=== PATIENT | female | born 1945 | race Caucasian/White ===

== ENCOUNTER 2019-04-19 15:35 | Inpatient (IN) | payer MEDICARE, BC ==
[~2019-04-19] VITALS: Ht 157.5 cm; Wt 80.0 kg
--- NOTE | 2019-04-19 15:47 | NUR ---
PT TO ROOM VIA [facility]
--- NOTE | 2019-04-19 16:18 | NUR ---
PT TO US AT THIS TIME IN STABLE CONDITION
[2019-04-19 16:22] LABS: HEMATOCRIT 34.5 % (37.0-47.0); HEMOGLOBIN 11.7 g/dl (12.0-16.0); IMMATURE GRANULOCYTES 0.9 % (0.0-5.0); MEAN CELL VOLUME 93.5 fL CALC (80.0-100.0); MEAN CORPUSCULAR HGB 31.7 pG CALC (26.0-32.0); MEAN CORPUSCULAR HGB CONC 33.9 g/L CALC (32.0-36.0); NEUT# 9.64 thou/uL (2.00-7.15); RED BLOOD COUNT 3.69 mill/uL (4.20-5.60); RED CELL DISTRI WIDTH 14.6 % (11.5-15.5)
--- NOTE | 2019-04-19 16:30 | NUR ---
PT RETURNED FROM US; MONITORING DEVICES IN PLACE; VSS; CALL LIGHT WITHIN REACH; WILL CONTINUE TO MONITOR
[2019-04-19 16:42] LABS: ALBUMIN 3.1 g/dL (3.2-5.0); BILIRUBIN, TOTAL 2.4 mg/dL (0.0-1.4); CREATININE 1.8 mg/dL (0.5-1.0); POTASSIUM 3.7 mmol/l (3.5-5.1); TOTAL PROTEIN 6.4 g/dL (6.3-8.2)
--- NOTE | 2019-04-19 17:30 | NUR ---
DR LAWSON AT BEDSIDE TO DISCUSS FINDINGS AND POC;
[2019-04-19 18:29] VITALS: BP 102/47
--- NOTE | 2019-04-19 18:30 | NUR ---
Admission Note Report Given to: MIGUE HERNÁNEDZ Transported by: Wheelchair X Stretcher Transported with: X Nurse Transporter X Patent IV O2 Real Estate Office Manager Location: ICU X MS2
--- NOTE | 2019-04-19 21:58 | NUR ---
PATIENT RESTING IN BED AT THIS TIME EATING MALL AMT OF DINNER TRAY PROVIDED. PATIENT WITH O2 VIA [employer] CANNULA IN PLACE. PATIENT IS AWAKE ALERT AND ORIENTEDX3. FAMILY AT BEDSIDE. PATIENT C/O SEVERE LEFT SHOULDER PAIN. DENIES ANY TYPE OF RECENT INJURY. MEDICATED WITH LORTAB 5/325MG PO OR 10/10 PAIN SCALE. X-RAY OF LEFT SHOULDER DONE AT BEDSIDE. IVF NS HUNG AND INFUSING VIALEFT AC SITE. SITE IS HEALTHY WITH GOOD BLOOD RETURN. PATIENTASSIST TO BSC TO VOID DARK BLANCA URINE. ASSISTED BACK TO BED. PATIENT ORIENTED TO ROOM AND SURROUNDINGS. INSTRUTED ON USE OF NURSE CALL LIGHT SYSTEM, TV REMOTE AND PHONE. SAFETY PRECAUTIONS REINFORCED. CALL LIGHT IN REACH. WILL CONT TO MONITOR.
--- NOTE | 2019-04-20 | NUR ---
PATIENT APPEARS SLEEPING AT THIS TIME POSTIONED ON HER RIGHT SIDE-EYES CLOSED AND RESPS ARE EVEN AND UNLABORED. O2 VIA [employer] CANNULA IN PLACE. IVF NS PATENT AND INFUSING VIA LEFT AC SITE AT 100CC/HR. SITE IS HEALTHY AT THIS TIME, CALL LIGHT IN REACH. WILL CONT TO MONITOR.
--- NOTE | 2019-04-20 02:15 | NUR ---
PATIENT RESTING IN BED-ASSISTED WITH BEDPAN TO VOID-TOO PAINFUL TO GET OOB PER PATIENT. PATIENT CRYING AND MOANING OF LEFT SHOULDER PAIN. MEDICATED WITHLORTAB 5/325MG PO FOR PAIN. OFFER HOT OR COLD PACK BUT PATIENT DECLINED AT THIS ITME. SAFETY PRECAUTIONS REINFORCED. CALL LIGHT IN REACH. WILL CONT TO MONITOR.
[2019-04-20 04:01] VITALS: BP 132/72
--- NOTE | 2019-04-20 04:13 | NUR ---
PATIENT STATES SOME RELIEF FROM EARLIER PAIN MED- TELE MONITOR IN PLACE. EKG WAS DONE. IVF PATENT AN INFUSING VIA LEFT AC SITE. SAFETY PREAUTIONS REINFORCED. CALL LIGHT IN REACH. WILL CONT TO MONITOR.
[2019-04-20 07:52] VITALS: BP 136/79
[2019-04-20 09:58] LABS: HEMOGLOBIN 11.5 g/dl (12.0-16.0); IMMATURE GRANULOCYTES 2.2 % (0.0-5.0); MEAN CELL VOLUME 94.3 fL CALC (80.0-100.0); MEAN CORPUSCULAR HGB CONC 32.9 g/L CALC (32.0-36.0); NEUT# 10.37 thou/uL (2.00-7.15); RED BLOOD COUNT 3.71 mill/uL (4.20-5.60); RED CELL DISTRI WIDTH 14.7 % (11.5-15.5)
--- NOTE | 2019-04-20 10:00 | NUR ---
PT ALERT AND ORIENTED X 3. LUNGS CLEAR, 2 LPM. PT PROVIDED PAIN MED THIS MORNING PER LEFT SHOULDER DISCOMFORT. RIGHT LEG APPEARS LESS SWOLLEN AND LESS RED THAN LAST NIGHT. SLING APPLIED TO LEFT ARM TO SUPPORT SHOULDER.
[2019-04-20 10:27] LABS: CREATININE 1.2 mg/dL (0.5-1.0); MAGNESIUM 2.1 mg/dL (1.6-2.3); POTASSIUM 3.8 mmol/l (3.5-5.1)
[2019-04-20 11:00] VITALS: BP 135/78
[2019-04-20 14:30] VITALS: BP 139/73
[2019-04-20] MEDS ORDERED: DICLOFENAC SODIUM1 % TOP (14:36)
[2019-04-20] MEDS ORDERED: MELOXICAM15 MG PO (14:37)
[2019-04-20 14:38] LABS: URINE BILIRUBIN - DIPSTICK NEGATIVE (NEGATIVE); URINE BLOOD DIPSTICK NEGATIVE (NEGATIVE); URINE COLOR DK. YELLOW; URINE GLUCOSE - DIPSTICK NEGATIVE (NEGATIVE); URINE KETONE NEGATIVE (NEGATIVE); URINE LEUK ESTERASE NEGATIVE (NEGATIVE); URINE NITRITE - DIPSTICK NEGATIVE (Negative); URINE PH 5.5 (4.5-8.0); URINE PROTEIN - DIPSTICK 30 mg/dL (NEG-TRACE); URINE UROBILINOGEN - DIPSTICK >=8.0 E.U./dL (0.2)
--- NOTE | 2019-04-20 14:38 | NUR ---
S: CADEN JACOBO is a 73 F who presents with Cellulitis (leg). All medications in patient's chart were reviewed. O: VS: BP:135/78 mmHg, P:84 bpm, RR:20 breath per minute,T:98.4 F W:80.002 kg, HT:62 in, Scr=1.2 mg/dL,CrCl=40.3 ml/min A: Blood culture is pending. P: Patient is on Ceftriaxone 1 gm IV Q24H. Vancomycin ordered for pharmacy to dose. Start Vancomycin 1,000 mg IV Q24H. Vancomycin trough is drawn 30 minutes before the 4th dose on 04/23/19 at 1630. Vancomycin goal trough is between 10-15 mcg/ml. Pharmacy will follow and or advise on antibiotics use as needed.
[2019-04-20 14:39] LABS: URINE SQUAMOUS EPITHELIAL CELL FEW EPI/hpf (0-FEW); URINE WBC 0-2 WBC/hpf (0-5)
--- NOTE | 2019-04-20 16:00 | NUR ---
PT MEDICATED ORDERED, SEEN TO HAVE REDUCTION IN PAIN LEVEL. PT SEEN RESTING IN THE BED, NO ACUTE DISTRESS.
[2019-04-20 18:40] VITALS: BP 151/74
--- NOTE | 2019-04-20 19:40 | NUR ---
PT RESTING IN BED, NO SIGNS OF DISTRESS NOTED, RESP EVEN AND UNLABORED. PT ALERT AND ORIENTED X3, DISCUSSED POC, REDNESS TO RLE NOTED PT STATES ITS NOT IT WAS BEFORE, EDEMA NOTED. ELEVATED BLE ON PILLOW. PT DENIES PAIN AT THIS TIME. ASSESSMENT COMPLETED, CALL LIGHT IN REACH,CONTINUE TO MONITOR.
[2019-04-20 23:27] VITALS: BP 124/56
--- NOTE | 2019-04-21 | NUR ---
PT RESTING IN BED WITH EYES CLOSED, NO SIGNS OF DISTRESS NOTED, RESP EVEN AND UNLABORED. CALL LIGHT IN REACH,CONTINUE TO MONITOR.
[2019-04-21 02:25] LABS: URINE BLOOD DIPSTICK NEGATIVE (NEGATIVE); URINE COLOR YELLOW; URINE GLUCOSE - DIPSTICK 100 mg/dL (NEGATIVE); URINE KETONE NEGATIVE (NEGATIVE); URINE LEUK ESTERASE NEGATIVE (NEGATIVE); URINE NITRITE - DIPSTICK NEGATIVE (Negative); URINE PH 5.5 (4.5-8.0); URINE PROTEIN - DIPSTICK 30 mg/dL (NEG-TRACE); URINE UROBILINOGEN - DIPSTICK >=8.0 E.U./dL (0.2)
[2019-04-21 02:26] LABS: URINE BILIRUBIN - DIPSTICK SMALL (NEGATIVE)
[2019-04-21 03:38] VITALS: BP 117/59
--- NOTE | 2019-04-21 03:39 | NUR ---
PT RESTING IN BED, VITALS OBTAINED, PT VOICES NO NEEDS OR COMPLAINTS AT THIS TIME, CALL LIGHT IN REACH,CONTINUE TO MONITOR.
[2019-04-21 07:27] VITALS: BP 147/70
--- NOTE | 2019-04-21 07:48 | NUR ---
REPORT RECEIVED FROM NINO GUIDRY. PT SITTING IN SEMI FOWLERS IN BED. REPORTS MILD LEFT SHOULDER PAIN, INCREASES TO SEVERE PAIN WITH MOVEMENT. FALL PRECAUTIONS REINFORCED. CALL LIGHT REVIEWED AND IN REACH. PLAN OF CARE DISCUSSED. PT INQUIRING ABOUT DISCHARGE. WORRIED ABOUT CAPABILITY OF TAKING CARE OF DISABLED IN THIS CONDITION. WILL RELAY THESE CONCERNS TO THE PHYSICIAN. PT ASSISTED TO BSC. UNABLE TO BEAR WEIGHT ON RIGHT FOOT AND UNABLE TO USE LEFT ARM. BM AT THIS TIME. ASSISTED BACK TO BED. NOW EATING BREAKFAST ON SIDE OF BED. BED ALARM SET FOR SAFETY.
--- NOTE | 2019-04-21 09:06 | NUR ---
PRELIMINARY BLOOD CULTURES POSITIVE FOR 2 SETS GRAM POSITIVE COCCI, CALLED TO PHYSICIAN. PT HAS COVERAGE WITH VANCOMYCIN AND ROCEPHIN.
[2019-04-21 11:09] LABS: HEMOGLOBIN 11.4 g/dl (12.0-16.0); IMMATURE GRANULOCYTES 3.9 % (0.0-5.0); MEAN CELL VOLUME 94.4 fL CALC (80.0-100.0); MEAN CORPUSCULAR HGB 31.7 pG CALC (26.0-32.0); MEAN CORPUSCULAR HGB CONC 33.5 g/L CALC (32.0-36.0); NEUT# 13.88 thou/uL (2.00-7.15); RED BLOOD COUNT 3.6 mill/uL (4.20-5.60); RED CELL DISTRI WIDTH 15.3 % (11.5-15.5)
[2019-04-21 11:42] VITALS: BP 152/74
--- NOTE | 2019-04-21 12:00 | NUR ---
DR. BROTHERS IN TO SEE PT. AT THIS TIME. PLAN OF CARE UPDATED AT THIS TIME.
--- NOTE | 2019-04-21 12:45 | NUR ---
PT LEFT FLOOR VIA STRETCHER AT THIS TIME, DESTINATION MRI, ACCOMPANIED BY DOLL SURGEON X 2.
--- NOTE | 2019-04-21 13:37 | NUR ---
PT RETURNED TO FLOOR VIA STRETCHER. REPORTS TOLERATION OF MRI TESTING. TRANSFERED BACK TO BED.
--- NOTE | 2019-04-21 14:05 | NUR ---
RIGHT ANKLE ASPIRATION PER DR. WORLEY. RADHA/ADOLPH ALCAZAR APPLIED. SPECIMEN SENT TO LAB [facility].
[2019-04-21 15:21] LABS: ANION GAP 12 (6-22 (CALC)); BUN 34 mg/dL (8-23); BUN/CREATININE RATIO 39 (12-20 (CALC)); CARBON DIOXIDE 26 mmol/l (22-30); CHLORIDE 105 mmol/l (95-108); CREATININE 0.9 mg/dL (0.5-1.0); GFR > 60 ML/MIN (>=60 (CALC)); GFR FOR AFR.AMER. > 60 ML/MIN (>=60 (CALC)); POTASSIUM 3.8 mmol/l (3.5-5.1); SODIUM 139 mmol/l (137-146)
--- NOTE | 2019-04-21 16:07 | NUR ---
KEEP PT. NPO AFTER MIDNIGHT PER DR. WORLEY.
[2019-04-21 16:22] VITALS: BP 162/79
[2019-04-21 19:45] VITALS: BP 151/78
--- NOTE | 2019-04-21 20:54 | NUR ---
PT MEDICATED AND ASSESSMENT COMPLETED AT THIS TIME. DRESSING TO RIGHT ANKLE IS CDI W/APPROPRIATE TIGHTNESS. STRONG PULSE PALPATED TO RIGHT FOOT AND ROM OF TOES GOOD. PT REPORTS ROM HAS IMPROVED. 2+ EDEMA TO RLE. ELEVATED W/PILLOWS AT THIS TIME. DISCUSSED USE OF IS W/PT, DID NOT WANT TO USE IT AT THIS ITME. PT MEDICATED FOR PAIN, WILL CALL RESP FOR ASSISTANCE SETTING UP CPAP.
[2019-04-21 23:50] VITALS: BP 161/86
[2019-04-22] VITALS (12 sets, daily range): BP systolic 139–186; BP diastolic 71–98
--- NOTE | 2019-04-22 00:15 | NUR ---
V/S OBTAINED, NO S/O DISTRESS NOTED.
--- NOTE | 2019-04-22 03:00 | NUR ---
PT CALLED TO REQUEST ASSISTANCE TO BEDPAN, SHE FELT SHE NEEDED TO HAVE BM, PT PASSED FLATUS ONLY, BUT WAS ABLE TO URINATE IN BEDPAN. 250CC OF DARK YELLOW URINE OUTPUT AT THIS TIME. PUREWICK BACK IN PLACE AND PT REPOSITIONED FOR COMFORT.
--- NOTE | 2019-04-22 03:33 | NUR ---
PT C/O PAIN IN LEFT SHOULDER 12/29. PT MEDICATED FOR PAIN AND PROVIDED WARM PACK TO AREA FOR COMFORT. PT ASSISTED REPOSITIONING IN BED FOR COMFORT. V/S ASSESSED, BP ELEVATED. WILL REEVALUATE BP ONCE PAIN IS UNDER CONTROL.
[2019-04-22 06:09] LABS: HEMATOCRIT 35.5 % (37.0-47.0); HEMOGLOBIN 11.6 g/dl (12.0-16.0); MEAN CELL VOLUME 94.4 fL CALC (80.0-100.0); MEAN CORPUSCULAR HGB 30.9 pG CALC (26.0-32.0); MEAN CORPUSCULAR HGB CONC 32.7 g/L CALC (32.0-36.0); RED BLOOD COUNT 3.76 mill/uL (4.20-5.60); RED CELL DISTRI WIDTH 15.6 % (11.5-15.5)
[2019-04-22 06:34] LABS: ANION GAP 12 (6-22 (CALC)); BUN 40 mg/dL (8-23); BUN/CREATININE RATIO 43 (12-20 (CALC)); CARBON DIOXIDE 27 mmol/l (22-30); CHLORIDE 105 mmol/l (95-108); CREATININE 0.9 mg/dL (0.5-1.0); GFR > 60 ML/MIN (>=60 (CALC)); GFR FOR AFR.AMER. > 60 ML/MIN (>=60 (CALC)); POTASSIUM 3.8 mmol/l (3.5-5.1); SODIUM 140 mmol/l (137-146)
--- NOTE | 2019-04-22 07:57 | NUR ---
PT RESTING IN BED, NO SIGNS OF DISTRESS NOTED, RESP EVEN AND UNLABORED. PT ALERT AND ORIENTED X3, EDEMA NOTED TO RLE, REMOVED DRESSING TO ANKLE. ASSESSMENT COMPLETED. PT CONTINUES TO C/O PAIN TO L SHOULDER. ICE PACK PROVIDED. CALL LIGHT IN REACH,CONTINUE TO MONITOR.
--- NOTE | 2019-04-22 09:40 | NUR ---
PT RESTING IN BED, DISCUSSED GOING TO THE OR FOR HER PROCEDURE PT VERBALIZED UNDERSTANDING. CONSENT OBTAINED.
--- NOTE | 2019-04-22 09:55 | NUR ---
OR ARRIVED TO BEDSIDE TO TAKE PT TO OR.
--- NOTE | 2019-04-22 10:07 | NUR ---
PT TAKEN DOWN TO OR VIA STRETCHER WITH NURSE TATUM AND STUDENT NURSE.
--- NOTE | 2019-04-22 12:08 | NUR ---
PT STILL IN OR AT THIS TIME
--- NOTE | 2019-04-22 13:53 | NUR ---
PT ARRIVED TO MS2 VIA STRETCHER ACCOMPANIED BY OR NURSE RC. PT DROWSY, ABLE TO STATE HER NAME AND . PT ATTACHED TO DYNAMAP FOR POST OP VITALS, IS AT BEDSIDE. DRESSING TO RLE CDI, ELEVATED ON PILLOW. CALL LIGHT IN REACH,CONTINUE TO MONITOR.
--- NOTE | 2019-04-22 15:57 | NUR ---
PT RESTING IN BED, DISCUSSED NEW MEDICATION NORVASC PT AGREES TO TAKE. NO SIGNS OF DISTRESS NOTED, RESP EVEN AND UNLABORED. CALL LIGHT IN REACH,CONTINUE TO MONITOR.
--- NOTE | 2019-04-22 19:45 | NUR ---
ASSESMENT COMPLETE. PLAN OF CARE REVIEWED. CALL JEREZ WITHIN REACH, AGREES TO CALL PRN.
--- NOTE | 2019-04-22 22:20 | NUR ---
PT STATES HER LEFT SHOULDER PAIN HASNT GOTTEN BETTER AND HER LLE PAIN IS GETTING WORSE. STATES "I WONT BE ABLE TO SLEEP", ADVISED PT I WOUL CALL MD FOR FURTHER ORDERS.
--- NOTE | 2019-04-22 23:00 | NUR ---
ORDERS RECEIVED FROM DR. MORENO, TELEPHONE ORDER READ BACK AND VERIFIED. SEE CHART.
[2019-04-23] VITALS (8 sets, daily range): BP systolic 143–180; BP diastolic 71–89
--- NOTE | 2019-04-23 00:22 | NUR ---
WENT IN TO MEDICATE PT AND PT WAS SLEEPING. APPEARS COMFORTABLE AND IN NO DISTRESS. SNORING, WEARING HOME CPAP. CALL JEREZ REMAINS WITHIN REACH. WILL MEDICATE PRN WHEN SHE WAKES UP. PELLED DOSE WASTED Flex/ MAC CAMARENA.
--- NOTE | 2019-04-23 03:37 | NUR ---
PT AWAKE, REPOSITIONED FOR COMFORT, MEDICATED WITH PERCOCET 2 TABS AND PREDNISONE (SEE MAR) PT DID NOT RECEIVE PREDNISONE YESTERDAY, WAS HELD B/C SHE WAS NPO FOR SX AND HAS HAD INCREASED L SHOULDER SINCE, PREDNISONE GIVEN EARLY PER PT PREFERENCE.
--- NOTE | 2019-04-23 04:51 | NUR ---
PT APPEARS TO BE SLEEPING COMFORTABLY, RESP REG/UNLABORED, NO APPARENT DISTRESS. CALL JEREZ REMAINS WITHIN REACH.
[2019-04-23 06:42] LABS: HEMATOCRIT 36.3 % (37.0-47.0); HEMOGLOBIN 11.5 g/dl (12.0-16.0); IMMATURE GRANULOCYTES 4.8 % (0.0-5.0); MEAN CELL VOLUME 97.8 fL CALC (80.0-100.0); MEAN CORPUSCULAR HGB CONC 31.7 g/L CALC (32.0-36.0); NEUT# 16.4 thou/uL (2.00-7.15); RED BLOOD COUNT 3.71 mill/uL (4.20-5.60)
[2019-04-23 06:59] LABS: ALBUMIN 2.6 g/dL (3.2-5.0); ALKALINE PHOSPHATASE 171 u/l (38-126); ANION GAP 11 (6-22 (CALC)); BILIRUBIN, TOTAL 1.7 mg/dL (0.0-1.4); BUN 25 mg/dL (8-23); BUN/CREATININE RATIO 34 (12-20 (CALC)); CARBON DIOXIDE 26 mmol/l (22-30); CHLORIDE 106 mmol/l (95-108); CREATININE 0.7 mg/dL (0.5-1.0); GFR > 60 ML/MIN (>=60 (CALC)); GFR FOR AFR.AMER. > 60 ML/MIN (>=60 (CALC)); POTASSIUM 4.4 mmol/l (3.5-5.1); SGOT/AST 66 u/l (9-36); SODIUM 139 mmol/l (137-146); TOTAL PROTEIN 5.8 g/dL (6.3-8.2)
--- NOTE | 2019-04-23 08:20 | NUR ---
Patient resting in the bed with eyes open watchinh TV. Head to toe assessment completed. Patient rated her pain "2 out of 10" A&0x3. Resp even and unlabored. Abd area soft and nontender. Last BM 04/21/19. Surgeon Hannah saw patient and stated he will being seeing patient on wednesday for delayed closure of wound. MD explained everything to patient and patient verbalized understanding.
--- NOTE | 2019-04-23 19:30 | NUR ---
CALLED DR. CASTRO TO VERIFY PT/OT CONSULT AND PROPHYLACTIC LOVENOX ORDERS. VERBAL ORDERS RECEIVED AND READ BACK.
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
--- NOTE | 2019-04-23 19:45 | NUR ---
ASSESMENT COMPLETE, PT RESTING IN BED. PLAN OF CARE REVIEWED. CALL JEREZ WITHIN REACH. AGREES TO CALL PRN.
--- NOTE | 2019-04-23 19:50 | NUR ---
ED CALLED TO REPORT PT CONVERTED TO AFIB FOR A MINUTE AND CONVERTED BACK TO NSR80'S. PT ASSESSED, REPORTS PAIN IN SHOULDER 5/10 THAT SHE HAS BEEN HAVING, DENIES CP/SOB/N. SKIN IS W/D TO TOUCH. BP ELEVATED @170/89,HR85 STEADY ON MONITOR. WILL NOTIFY PHYSICIAN OF RHYTHEM CHANGE.
--- NOTE | 2019-04-23 21:55 | NUR ---
SPOKE W/ DR. CASTRO RE: PT's ELEVATED B/P, NEW ONSET AFIB 130's (PER TELE). AFIB IS NON-SUSTAINED AND PT CONVERTS BACK TO NSR. PT ASYMPTOMATIC. DENIES HISTORY. EKG DONE, SHOWS NSR. 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 ORDER FOR METOPROLOL RECEIVED, VERIFIED AND READ BACK TO DR. CASTRO. SEE MAR.
[2019-04-24] VITALS (8 sets, daily range): BP systolic 143–180; BP diastolic 54–95
--- NOTE | 2019-04-24 00:10 | NUR ---
PT APPEARS TO BE SLEEPING, CPAP IS ON, NO APPARENT DISTRESS, RESP/REG AND UNLABORED. RLE REMAINS ELEVATED WITH DRESSING C/D/I. SENSATION, CIRCULATION, AND MOVEMENT CONTINUES TO BE INTACT TO RLE. B/P IMPROVED, PER BALDEMAR CAMARENA IN TELE NSR 70s AND PT IS NO LONGER "CONVERTING IN AND OUT OF AFIB)
--- NOTE | 2019-04-24 04:48 | NUR ---
PT CALLED AT 0400 ASKING FOR HER PAIN MEDICATION, UPON ENTERING ROOM PT IS CRYING AND COMPLAINING OF SEVERE L SHOULDER PAIN. PERCOCET GIVEN AT THAT TIME. ON F/U PT REPORTS NO CHANGE IN PAIN LEVEL, MEDICATED W/ DILAUDID (SEE MAR) AND REPOSITIONED. PT WAS MUCH CALMER AND COMFORTABLE IMMEDIATELY, WILL CON'T TO MONITOR. CALL JEREZ WITHIN REACH, AGREES TO CALL PRN.
--- NOTE | 2019-04-24 04:57 | NUR ---
RLE DRESSING REMAINS C/D/I, RLE ELEVATED, RLE: CIRCULATION, MOVEMENT, AND SENSATION INTACT/WNL. NO C/O PAIN FROM RLE.
--- NOTE | 2019-04-24 07:05 | NUR ---
REPORT RECEIVED FROM MIGUE GUTIÉRREZ;PT APPEARS TO BE SLEEPING IN SUPINE POSITION WITH HOME CPAP ON,RESPIRATIONS APPEAR EVEN AND UNLABORED;NO S/S OF DISTRESS NOTED;TELE MONITORING IN PLACE;ALL SAFETY PRECAUTIONS NOTED WITH BED IN THE LOWEST POSITION AND CALL LIGHT IN REACH;WILL CONTINUE TO MONITOR
--- NOTE | 2019-04-24 07:24 | NUR ---
Vancomycin Weight: 80 Kilograms Current dose being given: 1000 mg Current dosing interval: 24 hrs Current infusion time (hrs): 2 Trough level obtained: 2.5 mcg/ml Timing of trough - # of hrs before next dose: 0.5 Hrs New rate constant (kaur): 0.089 hr-1 Half-life: 7.79 Hours Vd from levels: 56.00 Liters (0.7 L/kg) CLvanco= 4.984 L/hr Vancomycin 1250 mg q 12 hrs starting at 1000 today Infuse over 2 hrs Expected Cpeak: 31 mcg/mL Expected Ctrough: 12 mcg/mL Next trough 04/25/19 at 2130
--- NOTE | 2019-04-24 09:00 | NUR ---
PT RESTING IN SEMI FOWLERS POSITION,A&O X3;VS OBTAINED AND ASSESSMENT COMPLETED;PT DENIES ANY CURRENT NEEDS,PAIN SCALE AND REPORTING EDUCATED;RESPIRATIONS SHALLOW ON RA,INSTRUCTED ON I.S USE AND VERBALIZES UNDERSTANDING;ABDOMEN SOFT ON PALPATION AND ACTIVE IN ALL 4 QUADRANTS;DRESSING TO RIGHT ANKLE CDI AND ELEVATED ON A PILLOW,CAP REFILL LESS THAN 3 SECONDS;TELE MONITORING IN PLACE;#20G TO LAC FLUSHED AND PATENT,SITE APPEARS HEALTHY;PT DENIES ANY ADDITIONAL NEEDS AT THIS TIME AND IS ENCOURAGED TO CALL FOR ASSISTANCE IF NEEDED;FALL PRECAUTIONS IN PLACE WITH BED IN THE LOWEST POSITION AND CALL LIGHT IN REACH;WILL CONTINUE TO MONITOR
--- NOTE | 2019-04-24 09:47 | NUR ---
AT BEDSIDE DISCUSSING POC WITH PT.
--- NOTE | 2019-04-24 10:10 | NUR ---
PT REPORTS LEFT SHOULDER PAIN RATING 10/10 ON THE PAIN SCALE AND REQUESTS PAIN MEDICATION,PT MEDICATED WITH PRN DILAUDID 1MG IVP PER EMAR;WILL CONTINUE TO MONITOR FOR EFFECTIVENESS
--- NOTE | 2019-04-24 11:14 | NUR ---
PT TRANSPORTED TO RADIOLOGY VIA STRETCHER IN STABLE CONDITION ACCOMPANIED BY USAMA ANDRADE
--- NOTE | 2019-04-24 11:55 | NUR ---
PT RETURNED BACK TO MED/SURF ROOM 262 IN STABLE CONDITION VIA STRETCHER ACCOMPANIED BY USAMA ANDRADE
--- NOTE | 2019-04-24 12:45 | NUR ---
PT RESTING IN SEMI FOWLERS POSITION REPORTING LEFT SHOULDER PAIN RATING 10/10 ON THE PAIN SCALE AND REQUESTING PAIN MEDICATION,PT TO BE MEDICATED WITH PRN DILAUDID 1MG IVP;RESPIRATIONS EVEN AND UNLABORED ON RA;TELE MONITORING IN PLACE;X2 ATTEMPTS MADE TO START NEW IV SITE DUE TO EXPIRATION DATE UNSUCESSFUL;PT ADMINISTERED MOM WITH PRUNE JUICE TO ASSIST IN BOWEL CARE;PT DENIES ANY ADDITIONAL NEEDS AT THIS TIME AND IS ENCOURAGED TO CALL FOR ASSISTANCE IF NEEDED;FALL PRECAUTIONS IN PLACE WITH CALL LIGHT IN REACH;WILL CONTINUE TO MONITOR
--- NOTE | 2019-04-24 15:25 | NUR ---
PT RESTING IN SEMI FOWLERS POSITION WITH NEURORADIOLOGIST AT BEDSIDE ASSISTING WITH BOWEL CARE;RESPIRATIONS EVEN AND UNLABORED ON RA;PT REPORTS PAIN TO LUE BUT DENIES THE NEED FOR PAIN MEDICATION STATING "I DONT WANNA TAKE ANYTHING" ICE PACK PROVIDED;RLE REMAINS ELEVATED ON A PILLOW;IV SITE TO LAC PATENT;TELE MONITORING IN PLACE;PT DENIES ANY ADDITIONAL NEEDS AT THIS TIME AND IS ENCOURAGED TO CALL FOR ASSISTANCE IF NEEDED;FALL PRECAUTIONS IN PLACE WITH CALL LIGHT IN REACH;WILL CONTINUE TO MONITOR
--- NOTE | 2019-04-24 17:10 | NUR ---
PT MEDICATED WITH PRN DILAUDID 1MG IVP FOR LEFT SHOULDER PAIN RATING 6/10 ON THE PAIN SCALE,WILL CONTINUE TO MONITOR FOR EFFECTIVENESS
--- NOTE | 2019-04-24 17:55 | NUR ---
PT TO BE MEDICATED WITH PRN APRESOLINE 10MG IVP BY MIGUE LEGER FOR BP 171/95 HR 98,WILL MONITOR FOR EFFECTIVENESS
--- NOTE | 2019-04-24 18:32 | NUR ---
BP RE-CHECK 165/85
--- NOTE | 2019-04-24 20:12 | NUR ---
NUCLEAR TECHNOLOGIST MADE REQUEST TO NOTIFY PHYSICIAN REGARDING POSSIBILITY OF PT BEING REMOVED FROM PARENT AIDE. MANAGER ADMINISTRATIVE SERVICES CALLED TO REPORT RECENT EVENTS REGARDING HEART RHYTHM CHANGES AND NEW MEDICATIONS ADMINISTERED, ORDERS RECEIVED FOR PT TO REMAIN ON PARENT AIDE AT THIS TIME.
--- NOTE | 2019-04-24 21:00 | NUR ---
PT MEDICATED AND ASSESSMENT COMPLETE AT THIS TIME. PT IS DISTRAUGHT ACTING, BREATHING HEAVY, WHEN ASKED IF PT WAS FEELING SOB/DENIED, STATING JUST PAIN IN HER NECK, LOWER BACK AND LEFT SHOULDER. RLE DRESSING CDI AND ELEVATED ON PILLOWS. ROM/CIRCULATION CHECKS ARE INTACT. NEURO'S APPEAR INTACT AT THIS TIME, PUPILS EQUAL AND REACTIVE, FACIAL NEURO'S ARE SYMETRIC, BEATER ENGINEER HELPER ARE EQUAL, WEAKNESS TO LEFT ARM/PT REPORTS IT "HURTS TOO MUCH TO MOVE." WILL CONTINUE TO MONITOR. PUREWICK IN PLACE TO CONTINUOUS LOW SUCTION DRAINING DARK YELLOW CLEAR URINE AT THIS TIME.
[2019-04-25] VITALS (18 sets, daily range): BP systolic 127–164; BP diastolic 65–93
--- NOTE | 2019-04-25 00:40 | NUR ---
PT APPEARS TO BE SLEEPING, NO S/O DISTRESS NOTED. CALL LIGHT W/IN REACH, LIGHTS AND TV ON LOW.
--- NOTE | 2019-04-25 03:45 | NUR ---
PT MEDICATED FOR PAIN 10/10 IN LEFT SHOULDER. ICEPACKS PLACED TO LEFT SHOULDER AND PT ASSISTED IN REPOSITIONING. PT ROM OF LEFT ARM IS VERY LIMITED DUE TO REPORTED PAIN.
--- NOTE | 2019-04-25 03:55 | NUR ---
ED CALLED TO REPORT PT IN AFIB 110'S. V/S ASSESSED, PT ASYMPTOMATIC OTHER THAN PREVIOUSLY REPORTED AND MEDICATED PAIN TO LEFT SHOULDER.
--- NOTE | 2019-04-25 04:28 | NUR ---
ED CALLED TO REPORT THAT PT HAD INCREASED HR OF 115-150 AFIB, FOR A MINUTE, BUT HAD JUST CONVERTED BACK TO NSR 80'S. WILL NOTIFY PHYSICIAN OF RATE/RHYTHM CHANGES. PT ASYMPTOMATIC.
--- NOTE | 2019-04-25 05:30 | NUR ---
ED CALLED TO REPORT PT IN AFIB 140'S SUSTAINED. PHYSICIAN CALLED AND ORDERS RECEIVED TO TRANSFER PT TO ED AND PLACE ON CARDIZEM DRIP.
[2019-04-25 05:46] LABS: HEMATOCRIT 36.8 % (37.0-47.0); HEMOGLOBIN 12.2 g/dl (12.0-16.0); MEAN CELL VOLUME 93.9 fL CALC (80.0-100.0); MEAN CORPUSCULAR HGB 31.1 pG CALC (26.0-32.0); MEAN CORPUSCULAR HGB CONC 33.2 g/L CALC (32.0-36.0); RED BLOOD COUNT 3.92 mill/uL (4.20-5.60); RED CELL DISTRI WIDTH 15.7 % (11.5-15.5)
--- NOTE | 2019-04-25 05:55 | NUR ---
PT TRANSFERRED TO ICU, REPORT GIVEN TO ICU NURSE. PT STILL REPORTS FEELING ASYMPTOMATIC, DENIES PALPATATIONS, SOB, CHEST PAIN, REPORTS LEFT SHOULDER PAIN.
[2019-04-25 06:00] LABS: ALBUMIN 2.8 g/dL (3.2-5.0); ALKALINE PHOSPHATASE 161 u/l (38-126); ANION GAP 13 (6-22 (CALC)); BILIRUBIN, TOTAL 1.4 mg/dL (0.0-1.4); BUN 17 mg/dL (8-23); BUN/CREATININE RATIO 26 (12-20 (CALC)); CARBON DIOXIDE 26 mmol/l (22-30); CHLORIDE 100 mmol/l (95-108); CREATININE 0.6 mg/dL (0.5-1.0); GFR > 60 ML/MIN (>=60 (CALC)); GFR FOR AFR.AMER. > 60 ML/MIN (>=60 (CALC)); POTASSIUM 4.3 mmol/l (3.5-5.1); SGOT/AST 31 u/l (9-36); SODIUM 135 mmol/l (137-146); TOTAL PROTEIN 6.6 g/dL (6.3-8.2)
--- NOTE | 2019-04-25 06:15 | NUR ---
PT. ARRIVES VIA STRETCHER FROM M/S @ 0555. FOUND IN A-FIB RATE IN THE 150'S. PT. DENIES PALPITATIONS OR FLUTTERING. DENIES NAUSEA, DIZZINESS OR SOB. DENIES OTHER CARDIAC SYMPTOMS. RESPS EVEN AND UNLABORED. APPEARS ANXIOUS. IV FLUIDS INFUSING AT 100 CC/HR. PT. FOUND INCONTINENT OF URINE AT THIS TIME. PT. PRESENTS WITH 10/10 LT. SHOULDER PAIN ON ARRIVAL TO UNIT. ICE PACK IN PLACE. RLE NOTED WITH POSTERIOR SPLINT. UNABLE TO VISUALIZE SURGICAL SITE UNDER ADOLPH WRAPS. NED CARE PROVIDED. BATES CATHETER PLACED PER ORDERS. ANCEF INFUSING PER PHYSICIAN ORDERS. ADDITIONAL IV PLACED TO RT. HAND AT THIS TIME #20.
--- NOTE | 2019-04-25 06:57 | NUR ---
REPORT RECVD FROM COURTNEY. PT SLEEPING IN BED. VIDHYA SANCHEZ PENDING CARDINAL APPROVAL.
--- NOTE | 2019-04-25 08:10 | NUR ---
DR BONDS NOTIFIED OF CARDIAC CONSULT.
--- NOTE | 2019-04-25 08:11 | NUR ---
DR BROTHERS @BEDSIDE, ASSESSING PT, DISCUSSING POC
--- NOTE | 2019-04-25 08:44 | NUR ---
PER DR BROTHERS, DO NOT START CARDIZEM IV.
--- NOTE | 2019-04-25 11:13 | NUR ---
DR WORLEY CALLED, PT MAY EAT. TODAYS DEBRIDEMENT RESCHEDULED FOR EITHER TOMORROW NIGHT OR WEDNESDAY. PT NEEDS TO BE CLEARED BY VAMSHI BEFORE RETURNING TO OP.
--- NOTE | 2019-04-25 12:22 | NUR ---
PT GIVEN HER PASSCODE, SHE WILL DISTRIBUTE THE # TO WHOM SHE WANTS. PT MEDICATED FOR PAIN.
--- NOTE | 2019-04-25 12:42 | NUR ---
DR BROTHERS NOTIFIED OF PTS REQUEST FOR MEDICATION FOR POST NASAL DRIP. ORDER FAXED TO PHARMACY
--- NOTE | 2019-04-25 14:27 | NUR ---
PHARMACY WILL BRING UP MEDICATIONS NOT IN P[facility]
--- NOTE | 2019-04-25 16:31 | NUR ---
PT C/O PAIN TO LEFT SHOULDER. PT ENCOURAGED TO MOVE AROUND IN BED, MEDICATED FOR PAIN.
--- NOTE | 2019-04-25 16:37 | NUR ---
U/S @BEDSIDE FOR ECHO
--- NOTE | 2019-04-25 16:55 | NUR ---
PT PLACED ON 2L NC D/T LOW O2 LEVELS. EXPLAINED INDICATION TO PT. ENCOURAGED TO TAKE DEEP BREATHS.
--- NOTE | 2019-04-25 17:30 | NUR ---
PT SITTING UP IN BED, EATING DINNER. PT ENCOURAGED TO MOVE SHOULDER- STATES PAIN GETTING BETTER WITH MOVEMENT.
--- NOTE | 2019-04-25 18:45 | NUR ---
REPORT FROM Yani BUTLER RN. ASSUMED PT. CARE.
--- NOTE | 2019-04-25 19:05 | NUR ---
PT. FOUND RESTING IN BED IN NO DISTRESS. ONLY COMPLAINT AT THIS TIME IS LT. SHOULDER PAIN. PT. IS NOTED TO BE IN ATRIAL FIBRILLATION WITH RATE IN THE 120-155 RANGE. WILL MEDICATE ORDERED. RESPS EVEN AND UNLABORED. SPO2 IN THE LOW 90'S. PULSE OX PROBE CHANGED AND O2 FLOW RATE TO NASAL CANNULA INCREASE FROM 1.5 L TO 2L AT THIS TIME. ABDOMEN SOFT AND NON-TENDER. PT. REPORTS NO BM SINCE WEDNESDAY. NO EDEMA NOTED. LUNGS CTA, DIMINISHED TO BASES BILATERALLY. CALL LIGHT WITHIN REACH. BATES DRAINING TO GRAVITY. PT. DENIES CP, SOB OR PALPITATIONS. SUJATHA GUILLEN. PT. WAS OFFERED GETTING WASHED UP BUT DECLINED AT THIS TIME. DISTIL PULSE TO LLE INTACT. GOOD DISTIL CAP REFILL NOTED TO RLE.
--- NOTE | 2019-04-25 19:25 | NUR ---
CARDIZEM DRIP INITIATED AT 10 MG/HR AT THIS TIME. BOLUS PROVIDED OUT THE BAG AND WAS 0.25MG/KG FOR A TOTAL OF 20 MG OVER 2 MINUTES PER PROTOCOL. WILL CLOSELY MONITOR BP AND TITRATE ACCORDINGLY. CALL LIGHT REMAINS WITHIN REACH. UPDATED ON HS PLAN OF CARE. WILL CONTINUE TO MONITOR.
--- NOTE | 2019-04-25 20:06 | NUR ---
CARDIZEM DRIP DECREASED FROM 10 MG/HR TO 7.5 MG/HR AT THIS TIME PT. FOUND TO BE IN NSR WITH RATE IN THE UPPER 60'S TO MID 70'S. WILL CONTINUE TO CLOSELY MONITOR.
--- NOTE | 2019-04-25 21:45 | NUR ---
ANCEF INFUSING WITHOUT SIGNS OF REACTIONS. IV FLUIDS CONTINUE TO INFUSE ORDERED AND CARDIZEM DRIP CONTINUES AT 7.5 MG/HR. HR REMAINS SINUS IN THE MID 70'S. CALL LIGHT REMAINS WITHIN REACH.
--- NOTE | 2019-04-25 22:35 | NUR ---
CARDIZEM DRIP DECREASED TO 5 MG/HR AT THIS TIME. HR REMAINS SINUS IN THE 60-70'S. PT. REPORTING THAT SHE IS "UNCOMFORTABLE". DENIES LOWER EXT PAIN, BUT STATES WITH 10/10 PAIN TO HER LEFT SHOULDER. PT. ON HER HOME CPAP AT THIS TIME. CALL LIGHT REMAINS WITHIN REACH.
--- NOTE | 2019-04-25 22:50 | NUR ---
PT. AGAIN PERFORMING ARTS TECHNICIANS LIGHT STATING SHE IS UNCOMFORTABLE. WHEN ASKED HOW SHE CAN BE REPOSITIONED TO ASSIST, SHE STATES "I DON'T KNOW". RT. LOWER EXTREMITY ELEVATED AND HEAD REPOSITIONED. PT. MOVED UP IN BED AT THIS TIME. ICE PROVIDED TO LT. SHOULDER.
--- NOTE | 2019-04-25 23:07 | NUR ---
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 STATES IT IS UNCOMFORTABLE. CARDIZEM DRIP CONTINUES TO INFUSE AT 5 MG/HR. IV FLUIDS INFUSING AT 100 CC/HR. CALL LIGHT REMAINS WITHIN REACH. WILL CONTINUE TO CLOSELY MONITOR.
[2019-04-26] VITALS (25 sets, daily range): BP systolic 77–159; BP diastolic 42–85
--- NOTE | 2019-04-26 01:05 | NUR ---
PT. RESTING IN BED WITH EYES CLOSED AND EVEN, UNLABORED RESPIRATIONS. PT. ON HER HOME CPAP. IV FLUIDS CONTINUE TO INFUSE ORDERED. BP/HR REMAIN STABLE. PT. REMAINS ON CARDIZEM AT 5MG/HR. RATE REMAINS SINUS AND CONTROLLED.
--- NOTE | 2019-04-26 03:02 | NUR ---
PT. REMAINS RESTFUL AND SLEEPING WITH EYES CLOSED AT THIS TIME. CARDIZEM DRIP CONTINUES AT 5 MG/HR. SINUS IN THE 60-70'S. CALL LIGHT REMAINS WITHIN REACH. PT. VOICES NO COMPLAINTS OR NEEDS. WILL CONTINUE TO CLOSELY MONITOR.
--- NOTE | 2019-04-26 04:30 | NUR ---
LAB AT BEDSIDE TO DRAW PATIENT. RESPS REMAINS EVEN AND UNLABORED. BP/HR STABLE. REMAINS SINUS ON THE MONITOR AND CARDIZEM DRIP INFUSING AT 5 MG/HR. CALL LIGHT REMAINS WITHIN REACH.
[2019-04-26 05:12] LABS: HEMATOCRIT 35.8 % (37.0-47.0); HEMOGLOBIN 11.5 g/dl (12.0-16.0); MEAN CELL VOLUME 95.5 fL CALC (80.0-100.0); MEAN CORPUSCULAR HGB 30.7 pG CALC (26.0-32.0); MEAN CORPUSCULAR HGB CONC 32.1 g/L CALC (32.0-36.0); RED BLOOD COUNT 3.75 mill/uL (4.20-5.60); RED CELL DISTRI WIDTH 15.7 % (11.5-15.5)
[2019-04-26 05:26] LABS: ANION GAP 13 (6-22 (CALC)); BUN 20 mg/dL (8-23); BUN/CREATININE RATIO 32 (12-20 (CALC)); CARBON DIOXIDE 22 mmol/l (22-30); CHLORIDE 105 mmol/l (95-108); CREATININE 0.6 mg/dL (0.5-1.0); GFR > 60 ML/MIN (>=60 (CALC)); GFR FOR AFR.AMER. > 60 ML/MIN (>=60 (CALC)); MAGNESIUM 2.2 mg/dL (1.6-2.3); POTASSIUM 4.7 mmol/l (3.5-5.1); SODIUM 136 mmol/l (137-146)
--- NOTE | 2019-04-26 05:56 | NUR ---
PT. RESTING IN BED WITH SNORING RESPIRATIONS. CARDIZEM DRIP INFUSING AT 5 MG/HR. RATE REMAINS CONTROLLED IN THE 60'S. CALL LIGHT REMAINS WITHIN REACH.
--- NOTE | 2019-04-26 07:00 | NUR ---
REPORT RECVD FROM MIGUE VALDEZ @START OF SHIFT.
--- NOTE | 2019-04-26 09:03 | NUR ---
KEISHA GUAJARDO, @BEDSIDE FOR CARDIOLOGY CONSULT.
--- NOTE | 2019-04-26 09:15 | NUR ---
PER DR RINCON, PT WILL GO TO SURGERY TODAY AT 1800; MAKE PT NPO AT 1000.
--- NOTE | 2019-04-26 09:24 | NUR ---
PT NOTIFIED OF UPDATED POC & REEDUCATED ON HOW TO USE FLONASE.
--- NOTE | 2019-04-26 09:43 | NUR ---
ALVIN MARINA, @BEDSIDE WITH PT.
--- NOTE | 2019-04-26 10:34 | NUR ---
PHYSICAL THERAPY @BEDSIDE- STATES THEY NEED NEW ORDERS FOR ESCALATION OF CARE. PHYSICAL THERAPY NOTIFIED OF CHANGE OF SURGICAL TIME.
--- NOTE | 2019-04-26 12:15 | NUR ---
PT LAUGHING/JOKING/PLAYFUL WITH FRIENDS AT BEDSIDE. FRIENDS ARE "HAPPY SHE IS LOOKING SO GOOD". NO NEEDS/CONCERNS AT THIS TIME.
--- NOTE | 2019-04-26 16:49 | NUR ---
STAFF READYING PT FOR PREOP
--- NOTE | 2019-04-26 16:57 | NUR ---
OR @BEDSIDE FOR PT.
--- NOTE | 2019-04-26 17:05 | NUR ---
PT OUT THE DOOR WITH OR STAFF.
--- NOTE | 2019-04-26 20:23 | NUR ---
PT ARRIVED BACK TO ICU 1 AT 2011 WITH OR STAFF VIA BED IN STABLE CONDITION; RESTING WITH EYES CLOSED; AWAKENS TO VERBAL STIMULI AND IS ORIENTED X 3. HAS NO C/O PAIN. RESPIRATIONS EVEN AND UNLABORED ON OXYGEN 2L VIA NC. LR INFUSING UPON ARRIVAL INTO NEW IV SITE TO RFA. SOFT BOOT AND ADOLPH WRAP DRESSING CDI TO RIGHT FOOT AND ANKLE; CAP REFILL LESS THAN 3 SECONDS. PT UNABLE TO MOVE TOES R/T POPLITEAL BLOCK SHE RECEIVED PRIOR TO SX. SCD TO LLE. IS AT BEDSIDE. BATES DRAINING CLEAR YELLOW URINE. SAFETY MEASURES IN PLACE. CALL [facility] WITHIN REACH.
--- NOTE | 2019-04-26 22:30 | NUR ---
PT AWAKE TO SPEAK WITH ON THE PHONE. SISTER ALSO CALLED FOR UPDATE. REPORTS MILD LEFT SHOULDER PAIN, BUT STATES THAT SHE IS COMFORABLE. NO REQUESTS OR CONCERNS AT THIS TIME. CALL LIGHT WITHIN REACH.
[2019-04-27] VITALS (10 sets, daily range): BP systolic 93–140; BP diastolic 53–66
--- NOTE | 2019-04-27 00:05 | NUR ---
PT ASLEEP ON LEFT SIDE LIGHTLY SNORING; NO SIGNS OF PAIN OR DISCOMFORT. DID NOT WAKE FOR SCHEDULED TYLENOL.
--- NOTE | 2019-04-27 02:16 | NUR ---
PT USED CALL LIGHT TO REQUEST ASSISTANCE WITH REPOSITIONING AND ADJUSTING BLANKETS. NO OTHER REQUESTS. VSS.
--- NOTE | 2019-04-27 04:45 | NUR ---
LAB AT BEDSIDE.
--- NOTE | 2019-04-27 05:16 | NUR ---
PERCOCET GIVEN FOR 8/10 LEFT SHOULDER PAIN. PT DENIES ANY PAIN TO SURGICAL AREA ON RIGHT FOOT.
[2019-04-27 05:19] LABS: HEMATOCRIT 31.9 % (37.0-47.0); HEMOGLOBIN 10.5 g/dl (12.0-16.0); MEAN CELL VOLUME 95.5 fL CALC (80.0-100.0); MEAN CORPUSCULAR HGB 31.4 pG CALC (26.0-32.0); MEAN CORPUSCULAR HGB CONC 32.9 g/L CALC (32.0-36.0); RED BLOOD COUNT 3.34 mill/uL (4.20-5.60); RED CELL DISTRI WIDTH 15.7 % (11.5-15.5)
[2019-04-27 05:28] LABS: ALBUMIN 2.5 g/dL (3.2-5.0); ALKALINE PHOSPHATASE 122 u/l (38-126); ANION GAP 13 (6-22 (CALC)); BILIRUBIN, TOTAL 1.1 mg/dL (0.0-1.4); BUN 15 mg/dL (8-23); BUN/CREATININE RATIO 27 (12-20 (CALC)); CARBON DIOXIDE 22 mmol/l (22-30); CHLORIDE 105 mmol/l (95-108); CREATININE 0.6 mg/dL (0.5-1.0); GFR > 60 ML/MIN (>=60 (CALC)); GFR FOR AFR.AMER. > 60 ML/MIN (>=60 (CALC)); POTASSIUM 4.5 mmol/l (3.5-5.1); SGOT/AST 27 u/l (9-36); SODIUM 135 mmol/l (137-146); TOTAL PROTEIN 6.2 g/dL (6.3-8.2)
--- NOTE | 2019-04-27 07:50 | NUR ---
PATIENT IS ASLEEP ON ROUNDS, AWAKENS TO NAME. RESP NON-LABORED. O2 ON AT 2 L NC, O2 SAT 98% DECREASED O2 TO 1 L WILL MONITOR. LUNGS CLEAR THROUGHOUT. RIGHT LEG IN SOFT CAST WRAPPED IN ADOLPH WRAP. PATIENT STATES NO PAIN IN RIGHT LEG OR FOOT, UNABLE TO WIGGLE HER TOES. TOES ARE PINK AND WARM TO TOUCH. LEFT LEG NO PERIPHERAL EDEMA. PERIPHERAL PULSES PALPABLE. IV IN RFA WITH NS AT KVO. IV SITE BENIGN. DISCUSSED PLAN OF CARE. DENIES NEEDS AT THIS TIME. CLL JEREZ IN REACH.
--- NOTE | 2019-04-27 08:53 | NUR ---
MEDICATED FOR WITH PERCOCET 10/325,2 TABS PO FOR C/O OPERATIVE PAIN AND LEFT SHOULDER PAIN. REPOSITIONED AND PROPPED WITH PILLOWS UNDER LEFT SHOULDER AND RIGHT LEG ELEVATED. ENCOURAGED TP REST. DR BROTHERS IN TO SEE PATIENT.
--- NOTE | 2019-04-27 09:00 | NUR ---
IV NS DECREASED TO 10 ML/HR PER DRS ORDERS.
--- NOTE | 2019-04-27 10:00 | NUR ---
SLEEPING SOUNDLY AFTER PAIN MED GIVEBN EARLIER.
--- NOTE | 2019-04-27 11:30 | NUR ---
ASSIST BATH DONE. PATIENT ASSISTED UP TO RECLINER WITH 2 PERSON ASSIST, PIVOTED INTO CHAIR. INSTRUCTIONS GIVEN TO PATIENT ON NWB ON [facility]. DICUSSED AFIB, RISKS OF STORKE AND BLOOD CLOTS AND MEDICATIONS FOR AFIB. PATIENT STATES "I KNOW, I KNOW, I KNOW," WHEN GIVEN ANY TYP OF INSTRUCTION.
--- NOTE | 2019-04-27 12:15 | NUR ---
DR STEPHENS IN TO SEE PATIENT.
--- NOTE | 2019-04-27 14:13 | NUR ---
TOLERATED CHAIR ACTIVITY WELL. USED BSC PRIOR TO GOING BACK TO BED. PATIENT HAS SMALL HARD FORMED BROWN STOOL. OFFERED MOM REFUSES AT THIS TIME.
--- NOTE | 2019-04-27 16:20 | NUR ---
RESTING WITH EYES CLOSED. O2 SAT DROPPED TO 88% PATIENT HAD O2 OFF, REAPPLIED O2 AT 2 L NC. O2 SAT 96%
--- NOTE | 2019-04-27 17:20 | NUR ---
UP TO RECLINER WITH 2 ASSISTS AND USE OF WALKER, NWB RT FOOT. PAITENT HAS SOME DIFFICULTY ACCEPTING DIRECTIONS WITH CARE. LEGS ELEVATED WITH FOOTREST AND PILLOWS. PATIENT ABLE TO WIGGLE TOES ON RIGHT FOOT SLIGHTLY, RT LOWER LEG EDEMATOUS, TOES PINK AND WARM WITH PERIPHERAL PULSES PALPABLE. ENCOURAGE USE OF IS.
--- NOTE | 2019-04-27 18:25 | NUR ---
RETURNED TO BED WITH 2 ASSISTS, NWB ON RT LEG. LEGS ELEVATED ON PILLOWS. MEDICATED WITH PERCOCET 1 TAB FOR C/O PAIN. SR UPX2, CALL JEREZ IN REACH.
--- NOTE | 2019-04-27 19:10 | NUR ---
pt layed supine. on 2l/min nc, no sob noted, awake, alert and oriented x4. head to toe nursing assessment performed. follows all commands, answers questions. rfa 20g iv intcat, iv fluids infusing properly. singleton cath intact. scd placed to lle, rle has a soft cast and wrapped, cdi. poc for tonight discussed, pt understands and agrees. rates pain 1 of 10. sr on telemetry. self repsoitions. call light within reach.
--- NOTE | 2019-04-27 20:33 | NUR ---
PT MAINTENANCE MANAGER LIGHT, REQUEST FOR AIR TO BE TURNED DOWN SINCE SHE FEELS HOT, ALSO ASKS WHEN MEDICATIONS ARE DUE, AT BEGINNING OF SHIFT I EXPLAINED MEDICATION TIMES, REMINDED HER.
--- NOTE | 2019-04-27 20:54 | NUR ---
PATIENT ABLE TO TOLERATE HER BEDTIME MEDICATIONS. MOM GIVEN FOR CONSTIPATION, PT IS PASSING GAS. NO COMPLAINTS OF PAIN, PATIENT ABLE TO PULL HERSELF UP WITH VERBAL CUEING, AWARE OF NWB TO RLE. LAYS ON HER RIGHT SIDE. SHETT PLACED ON TOP PER REQUEST. CALLED RT TO PLACE PT ON CPAP.
--- NOTE | 2019-04-27 21:00 | NUR ---
PT RAILROAD WHEELS AND AXLES INSPECTOR LIGHT DUE TO HER PULSE OX CORD WAS PULLING ON HER.
--- NOTE | 2019-04-27 21:04 | NUR ---
RT IN ROOM, PT NOW ON HER CPAP. CALL LIGHT WITHIN REACH.
--- NOTE | 2019-04-27 21:17 | NUR ---
TYLENOL GIVEN FOR TEMP OF 100.3. NEW PULSE OX PLACED DUE TO OTHER WAS LOSE AND GIVING LOW READINGS. PT ON CPAP, SATS 95%.
--- NOTE | 2019-04-27 23:21 | NUR ---
pt awakens easily with verbal stimuli, rechecked temp, afebrile now. no acute distress shwon. wears cpap. call light within reach. no needs at this time.
--- NOTE | 2019-04-27 23:52 | NUR ---
pt lays on her r-side. awakns easily. no needs or complaints at this time. call light within reach.
[2019-04-28] VITALS (10 sets, daily range): BP systolic 110–155; BP diastolic 52–80
--- NOTE | 2019-04-28 03:43 | NUR ---
PT NET SOFTWARE ARCHITECT LIGHT, REQUESTED PAIN MEDICINE FOR L-SHOULDER AI. PROVIDED. NOW LAYS SUPINE. NO ACUTE DISTRES SSHOWN. BACK ON CPAP. CALL LIGHT WITHIN REACH.
--- NOTE | 2019-04-28 04:21 | NUR ---
PT REQUESTED TO BE TAKEN OFFF OF CPAP. NOW PLACED ON 1.5 L/MIN NC.
[2019-04-28 04:56] LABS: HEMATOCRIT 31.4 % (37.0-47.0); HEMOGLOBIN 9.9 g/dl (12.0-16.0); MEAN CELL VOLUME 97.8 fL CALC (80.0-100.0); MEAN CORPUSCULAR HGB 30.8 pG CALC (26.0-32.0); MEAN CORPUSCULAR HGB CONC 31.5 g/L CALC (32.0-36.0); RED BLOOD COUNT 3.21 mill/uL (4.20-5.60); RED CELL DISTRI WIDTH 15.2 % (11.5-15.5)
[2019-04-28 05:05] LABS: ANION GAP 10 (6-22 (CALC)); BUN 17 mg/dL (8-23); BUN/CREATININE RATIO 30 (12-20 (CALC)); CARBON DIOXIDE 25 mmol/l (22-30); CHLORIDE 104 mmol/l (95-108); CREATININE 0.6 mg/dL (0.5-1.0); GFR > 60 ML/MIN (>=60 (CALC)); GFR FOR AFR.AMER. > 60 ML/MIN (>=60 (CALC)); POTASSIUM 4.8 mmol/l (3.5-5.1); SODIUM 134 mmol/l (137-146)
--- NOTE | 2019-04-28 05:39 | NUR ---
PATIENT ABLE TO TOLERATE HER AM MEDS. NO ACUTE DISTRESS SHOWN. CALL LIGHT WITHIN REACH.
--- NOTE | 2019-04-28 07:05 | NUR ---
recieved report from night rn, pt resting in bed,vss, no s/s of distress noted, will continue to monitor
--- NOTE | 2019-04-28 08:00 | NUR ---
PT ASSISTED TO BEDSIDE COMMODE AFTER BREAKFAST, BED BATH GIVEN, LINENS CHANGED, MEDICATED PER EMAR,HAD BM, ASSISTED BACK TO BED.
--- NOTE | 2019-04-28 09:30 | NUR ---
PT DOWN TO XRAY VIA WHEELCHAIR FOR PICC LINE
[2019-04-28] MEDS ORDERED: CARDIZEM CD240 MG PO (09:40)
[2019-04-28] MEDS ORDERED: CEFAZOLIN1 GM IV (09:40)
[2019-04-28] MEDS ORDERED: PERCOCET 10/31 COMBO PO (09:40)
[2019-04-28] MEDS ORDERED: PANTOPRAZOLE SO40 M1 PO (09:40)
[2019-04-28] MEDS ORDERED: ELIQUIS5 MG PO (09:40)
--- NOTE | 2019-04-28 10:00 | NUR ---
PT STILL IN XRAY FOR PICC LINE
--- NOTE | 2019-04-28 10:30 | NUR ---
PT BACK FROM RADIOLOGY WITH CARMELA PICC LINE IN PLACE. PT ASSITED TO BED, VSS, NO C/O AT THIS TIME, WILL CONTINUE TO MONITOR
--- NOTE | 2019-04-28 12:00 | NUR ---
PT SITTING AT BEDSIDE EATING LUNCH WITH VISTORS, VSS, NO S/S OF DISTRESS NOTED, NEEDS ATTENDED TOO
--- NOTE | 2019-04-28 14:00 | NUR ---
PT RESTING IN BED, VSS, NEEDS ATTENDED TOO, WILL CONTINUE TO MONITOR. AWAITING BED AT [facility]
--- NOTE | 2019-04-28 16:00 | NUR ---
PT MEDICATED PER EMAR, NEEDS ATTENDED TOO, WILL CONTINUE TO MONITOR
--- NOTE | 2019-04-28 18:00 | NUR ---
PT A AND O X3, NO C/O AT THIS TIME, VSS, NO S/S OF DISTRESS NOTED
--- NOTE | 2019-04-28 19:10 | NUR ---
PATIENT LAYS SUPINE, ON 2L/MIN NC. IS AWAKE, ALERT. ANSWERS ALL QUESTIONS, FOLLOWS COMMANDS. EXPRESSES SHE HAD A GOOD DAY AND ALL STAFF HAS BEEN GOOD TO HER. DENIES N/V/D. DENIES SOB. HEAD TO TOE NURSING ASSESSMENT PERFORMED. RFA 20 G IV INTACT, SLAINE LOCKED. GALINA 1 LUMEN PICC INTACT AND NS INFUSING AT 10 ML/HR. SCD TO L-LEG INTACT AND SCD MACHINE TURNED BACK ON. RLE SOFT CAST WRAPPED WITH ADOLPH WRAP CDI, AND ELEVATED WITH PILLOW. SR ON TELEMETRY. AFEBRILE. BATES CATH INTACT, URINE BLANCA/CLEAR. POC FOR TONIGHT DISCUSSED. RATES PAIN 1 OF 10. PT ALREADY AWARE SHE WILL BE DISCHARGED TOMORROW. CALL LIGHT WITHIN REACH.
--- NOTE | 2019-04-28 21:11 | NUR ---
PT ABLE TO TOLERATE HER BEDTIME MEDS. SELF REPOSITIONS, NOW LAYS ON HER LEFT SIDE. PILLOW PLACED BETWEEN LEGS. CPAP ON NOW. CALL LIGHT WITHIN REACH.
--- NOTE | 2019-04-28 22:41 | NUR ---
PT GIVEN PAIN MED PER PT REQUEST. CALL LIGHT WITHIN REACH.
[2019-04-29] VITALS (7 sets, daily range): BP systolic 106–166; BP diastolic 55–93
--- NOTE | 2019-04-29 00:41 | NUR ---
PATIENT AWAKE, ON CPAP. WATCHES TV. SCHEDULED TYLENOL GIVEN, PT C/O HEADACHE RATES IT 06/29. NO OTHER NEEDS. CALL LIGHT WITHIN REACH.
--- NOTE | 2019-04-29 02:04 | NUR ---
PT REQUESTS FOR CPAP TO BE TAKEN OFF. PT AWAKE, WATCHES TV. PLACED ON 2L/MIN NC.
--- NOTE | 2019-04-29 04:30 | NUR ---
BLOOD DRAWN FROM [facility]. PT RESTS WITH EYES CLOSED. CALL LIGHT WITHIN REACH.
[2019-04-29 04:48] LABS: HEMATOCRIT 28.7 % (37.0-47.0); HEMOGLOBIN 9.2 g/dl (12.0-16.0); MEAN CELL VOLUME 97.6 fL CALC (80.0-100.0); MEAN CORPUSCULAR HGB 31.3 pG CALC (26.0-32.0); MEAN CORPUSCULAR HGB CONC 32.1 g/L CALC (32.0-36.0); RED BLOOD COUNT 2.94 mill/uL (4.20-5.60); RED CELL DISTRI WIDTH 14.9 % (11.5-15.5)
[2019-04-29 05:06] LABS: ANION GAP 8 (6-22 (CALC)); BUN 12 mg/dL (8-23); BUN/CREATININE RATIO 19 (12-20 (CALC)); CARBON DIOXIDE 30 mmol/l (22-30); CHLORIDE 102 mmol/l (95-108); CREATININE 0.6 mg/dL (0.5-1.0); GFR > 60 ML/MIN (>=60 (CALC)); GFR FOR AFR.AMER. > 60 ML/MIN (>=60 (CALC)); POTASSIUM 4.5 mmol/l (3.5-5.1); SODIUM 135 mmol/l (137-146)
--- NOTE | 2019-04-29 06:04 | NUR ---
PAIN MEDICATION GIVEN PER PT REQUEST, RATES 09/28. ABLE TO REPSOITION WITH VERBAL CUEING. CALL LIGHT WITHIN REACH. SCD TO LLE TAKEN OFF. CALL LIGHT WITHIN REACH.
--- NOTE | 2019-04-29 06:45 | NUR ---
RECIEVED REPORT FROM MIGUE GREEN. ASSUMED PT CARE.
--- NOTE | 2019-04-29 07:15 | NUR ---
PT RESTING IN BED. A&OX4, ABLE TO MAKE NEEDS KNOWN. RESPIRATIONS EVEN/UNLABORED, SA02@93% ON 2LPM VIA NC. PT DENIES CP, SOB OR DISTRESS AT THIS TIME. LS CLEAR THROUGHOUT. ABDOMEN SOFT, NON-TENDER. PT REPORTS LBM 2-7-20. BATES REMAINS PATENT DRAINING TO BSD VIA GRAVITY, CLEAR BLANCA COLOR. AFEBRILE. PT STATES PAIN 3/10 AT RLE AND L SHOULDER. PT MEDICATED EARLIER SHIFT. CALL LIGHT IN REACH. WILL MONITOR.
--- NOTE | 2019-04-29 07:30 | NUR ---
DIETARY ON UNIT, PT REPOSITIONED SELF. BREAKFAST TRAY SET UP.
--- NOTE | 2019-04-29 08:15 | NUR ---
PT CALLED STAFF TO THE ROOM, PT ON THE PHONE WITH HER , PT ASKED THIS NURSE FOR MEDICAL ADVICE, HE STATED, " IM GOING TO ". WAS TOLD TO CALL 911 IF HE FELT HIS LIFE WAS IN DANGER. THAT THIS LEAD OXIDE MILL TENDER COULD NOT GIVE MEDICAL ADVICE OVER THE PHONE, HE THEN ASK ME TO SPEAK WITH HIS PRIVATE NURSE OVER THEN PT PERSONAL CELL PHONE, i PLEASANTLY DECLINED AND AGAIN TOLD HIM i COULD NOT GIVE MEDICAL ADVICE OVER THE PHONE. PT THEN TOLD THIS LEAD OXIDE MILL TENDER THAT HE IS ALWAYS LIKE THAT. PT THEN ASKED HER IF SHE COULD GET OFF THE PHONE, HE SAID, "NO, I WILL IF YOU HANG UP." PT REMAINED ON PERSONAL CELL PHONE WITH HER .
--- NOTE | 2019-04-29 09:49 | NUR ---
FAMILY ARRIVED AT BEDSIDE FOR VISIT.
--- NOTE | 2019-04-29 10:24 | NUR ---
PT MACHINE CAGE MAKER CAME IN FOR VISIT AND TO PRAY WITH HER.
--- NOTE | 2019-04-29 10:35 | NUR ---
PT MEDICATED FOR RLE PAIN 09/28 AND L SHOULDER ORDERED PER PT REQUEST. CALL LIGHT IN REACH. WILL MONITOR.
--- NOTE | 2019-04-29 13:30 | NUR ---
IV site discontinued, cath intact. No edema , no redness, voices no discomfort.
--- NOTE | 2019-04-29 13:57 | NUR ---
Discharge instructions given. Patient verbalizes understanding of same. Discharged in stable condition via Wheelchair to *Other with staff. All belongings sent with pt. ALL PAPER PRESCRIPTIONS SENT WITH PT.
--- NOTE | 2019-04-29 14:00 | NUR ---
REPORT CALLED TO AMANDA AT [facility] [phone]
== END 2019-04-29 13:57 | DRG 854 ==
LOC: ED 15:35 → ED-I 17:20 → ED 17:39 → MS2 17:40 → ICU 04-20 15:38 → MS2 04-20 15:38 → ICU 04-25 05:55
PROVIDERS: Emergency Medicine; Nurse Practitioner Family; ADMIT Internal Medicine; ATTEND Internal Medicine
PROC: 0S9F3ZZ Drainage of Right Ankle Joint, Percutaneous Approach (ICD-10-PCS; 2019-04-21)
PROC: 0S9F0ZZ Drainage of Right Ankle Joint, Open Approach (ICD-10-PCS; principal; 2019-04-22)
PROC: 0LBN0ZZ Excision of Right Lower Leg Tendon, Open Approach (ICD-10-PCS; 2019-04-22)
PROC: 0KNS0ZZ Release Right Lower Leg Muscle, Open Approach (ICD-10-PCS; 2019-04-22)
PROC: 0R9K3ZZ Drainage of Left Shoulder Joint, Percutaneous Approach (ICD-10-PCS; 2019-04-24)
PROC: 0LQN0ZZ Repair Right Lower Leg Tendon, Open Approach (ICD-10-PCS; 2019-04-26)
PROC: 3E0T3BZ Introduction of Anesthetic Agent into Peripheral Nerves and Plexi, Percutaneous Approach (ICD-10-PCS; 2019-04-26)
PROC: 02HV33Z Insertion of Infusion Device into Superior Vena Cava, Percutaneous Approach (ICD-10-PCS; 2019-04-28)
PROC: B518ZZA Fluoroscopy of Superior Vena Cava, Guidance (ICD-10-PCS; 2019-04-28)
DX: A41.01 Sepsis due to Methicillin susceptible Staphylococcus aureus (principal); M00.9 Pyogenic arthritis, unspecified; L03.115 Cellulitis of right lower limb; N17.9 Acute kidney failure, unspecified; R65.20 Severe sepsis without septic shock; M76.71 Peroneal tendinitis, right leg; M19.012 Primary osteoarthritis, left shoulder; G47.33 Obstructive sleep apnea (adult) (pediatric); I12.9 Hypertensive chronic kidney disease with stage 1 through stage 4 chronic kidney disease, or unspecified chronic kidney disease; N18.2 Chronic kidney disease, stage 2 (mild); E78.5 Hyperlipidemia, unspecified; M08.09 Unspecified juvenile rheumatoid arthritis, multiple sites; I48.0 Paroxysmal atrial fibrillation; I34.0 Nonrheumatic mitral (valve) insufficiency; K21.9 Gastro-esophageal reflux disease without esophagitis; I45.10 Unspecified right bundle-branch block; Z82.49 Family history of ischemic heart disease and other diseases of the circulatory system; Z96.651 Presence of right artificial knee joint; G89.18 Other acute postprocedural pain
CPT/HCPCS: G0378; J0131; J1650; J3370; Q3014; S0164

== ENCOUNTER 2021-01-22 09:41 | Emergency (ER) | payer MEDICARE, BC ==
[~2021-01-22] VITALS: Ht 157.5 cm; Wt 72.7 kg
[~2021-01-22 09:41] MED LIST: CARDIZEM CD240 MG PO; CEFAZOLIN1 GM IV; DICLOFENAC SODIUM1 % TOP; ELIQUIS5 MG PO; MELOXICAM15 MG PO; PANTOPRAZOLE SO40 M1 PO; PERCOCET 10/31 COMBO PO
[2021-01-22 10:26] LABS: HEMATOCRIT 44.7 % (37.0-47.0); HEMOGLOBIN 14.9 g/dl (12.0-16.0); IMMATURE GRANULOCYTES 0.4 % (0.0-5.0); MEAN CELL VOLUME 96.8 fL CALC (80.0-100.0); MEAN CORPUSCULAR HGB 32.3 pG CALC (26.0-32.0); MEAN CORPUSCULAR HGB CONC 33.3 g/dL CAL (32.0-36.0); NEUT# 8.41 thou/uL (2.00-7.15); RED BLOOD COUNT 4.62 mill/uL (4.20-5.60); RED CELL DISTRI WIDTH 12.5 % (11.5-15.5)
[2021-01-22 10:38] LABS: ALKALINE PHOSPHATASE 137 u/l (38-126); ANION GAP 14 (6-22 (CALC)); BILIRUBIN, TOTAL 0.9 mg/dL (0.0-1.4); BUN 17 mg/dL (8-23); BUN/CREATININE RATIO 24 (12-20 (CALC)); CARBON DIOXIDE 24 mmol/l (22-30); CHLORIDE 103 mmol/l (95-108); CREATININE 0.7 mg/dL (0.5-1.0); GFR > 60 ML/MIN (>=60 (CALC)); GFR FOR AFR.AMER. > 60 ML/MIN (>=60 (CALC)); POTASSIUM 4.1 mmol/l (3.5-5.1); SGOT/AST 22 u/l (9-36); SODIUM 137 mmol/l (137-146); TOTAL PROTEIN 7.1 g/dL (6.3-8.2)
[2021-01-22 10:45] LABS: ALBUMIN 3.9 g/dL (3.2-5.0)
[2021-01-22 11:00] VITALS: BP 151/71
== END 2021-01-22 12:15 | disposition short-term general hospital (02) ==
LOC: ED 09:41
PROVIDERS: Emergency Medicine
DX: S72.142A Displaced intertrochanteric fracture of left femur, initial encounter for closed fracture (principal); I10 Essential (primary) hypertension; I48.91 Unspecified atrial fibrillation; M08.00 Unspecified juvenile rheumatoid arthritis of unspecified site; W19.XXXA Unspecified fall, initial encounter; Y93.K9 Activity, other involving animal care; Y92.009 Unspecified place in unspecified non-institutional (private) residence as the place of occurrence of the external cause; Z79.01 Long term (current) use of anticoagulants